=== PATIENT | female | born 1960 ===

== ENCOUNTER 2021-06-26 08:31 | Day surgery (SDC) | payer OTHER ==
[~2021-06-26] VITALS: Ht 162.6 cm; Wt 77.2 kg
[2021-06-26] VITALS (9 sets, daily range): BP systolic 119–158; BP diastolic 62–86
[~2021-06-26 08:31] MED LIST: INSU100I14 SQ; LISI10TA25 PO; METF-397 PO
[2021-06-26] MEDS ORDERED: LACTATED RINGERS 1,000 ML IV ONE (09:04)
--- NOTE | 2021-06-26 09:19 | Progress Note-Pre Operative ---
Pre-Operative Progress Note H&P Reviewed The H&P was reviewed, patient examined and no changes noted. Time Seen by Provider: 09:14 Date H&P Reviewed: Jun 26, 2021 Time H&P Reviewed: 09:14 Pre-Operative Diagnosis: Screening colon DUKE HARVEY DO Jun 26, 2021 09:19
[2021-06-26] MEDS ORDERED: ASPI-1238 PO (09:30)
[2021-06-26] MEDS ORDERED: SITA100T12 PO (09:30)
[2021-06-26] MEDS ORDERED: LACTATED RINGERS 1,000 ML IV SCH (10:15)
[2021-06-26] MEDS ORDERED: PROPOFOL INJECTION 50 ML IV ONE (10:59)
--- NOTE | 2021-06-26 11:35 | Progress Note-Post Operative ---
Post-Operative Progess Note Surgeon (s)/Claims Administrator (s) Surgeon DUKE HARVEY DO Claims Administrator: JASPREET EllisII Pre-Operative Diagnosis Screening colon Post-Operative Diagnosis Polyps Diverticula Int Hemorrhoids Procedure & Operative Findings Date of Procedure 06/26/21 Procedure Performed/Findings Colonoscopy with hot bx PROCEDURE NOTE: After informed consent was obtained, the patient was brought to the endoscopy suite, placed in bed in left lateral decubitus position. She was administered IV sedation by the TRAVELING CRANE OPERATOR who then monitored her vitals the entire time, heart rate, blood pressure and pulse ox and the scope was inserted, pushed all the way to about 150 cm and pushed into the cecum, took a picture of appendiceal orifice and then saw a small polyp. Elected to do a hot biopsy to remove this, took it in two bites. Then slowly withdrew the scope insufflating to look circumferentially at the aranda starting in the cecum, up the ascending colon to the hepatic flexure, then down the transverse colon, splenic flexure, into the descending colon. In the descending colon saw another small polyp and did another hot biopsy. Continued down into the sigmoid and then into the rectal vault and retroflexed the scope. Took picture of the internal hemorrhoids. The patient tolerated the procedure. She was recovered in endoscopy suite. She will need repeat colonoscopy in 5 years because of the polyps. Anesthesia Type IV sedation by TRAVELING CRANE OPERATOR Estimated Blood Loss Estimated blood loss (mL): scant Specimens/Packing Specimens Removed cecal polyp desc colon polyp DUKE HARVEY DO Jun 26, 2021 11:35
--- NOTE | 2021-06-26 11:36 | Endoscopy Discharge Instruct ---
Endo Procedure/Findings Findings 1.: Polyp 2.: Diverticulosis 3.: Internal Hemorrhoids Discharge Instructions - Activity: You might feel a little sleepy until tomorrow. This is due to the medicine you received to relax you. Until tomorrow, you should: NOT drive a car, operate machinery or power tools. NOT drink any alcoholic beverages. NOT make any important decisions or sign importortant papers. Do not return to work until tomorrow, unless otherwise instructed. Resume previous activities tomorrow. Diet: Start by taking liquids. If you tolerate liquids, advance to solid food. 1.: Colonscopy in 5 years Notify Physician - If you experience excessive bleeding, unusual abdominal pain, fever, or chest pain, contact your doctor immediately. DUKE HARVEY DO Jun 26, 2021 11:36
--- NOTE | 2021-06-26 11:58 | Anesthesia-General Post-Op ---
MAC Patient Condition Mental Status/LOC: Same as Preop Cardiovascular: Satisfactory Nausea/Vomiting: Absent Respiratory: Satisfactory Pain: Controlled Complications: Absent Post Op Complications Complications None Follow Up Care/Instructions Patient Instructions None needed. Anesthesiology Discharge Order Discharge Order Patient is doing well, no complaints, stable vital signs, no apparent adverse anesthesia problems. No complications reported per nursing. JAYDON STAHL CRNA Jun 26, 2021 11:57
== END 2021-06-26 12:45 | disposition home or self-care (01) ==
LOC: ENDO 08:31
PROVIDERS: ATTEND Surgery
DX: Z12.11 Encounter for screening for malignant neoplasm of colon (principal); D12.0 Benign neoplasm of cecum; K63.5 Polyp of colon; K57.30 Diverticulosis of large intestine without perforation or abscess without bleeding; K64.8 Other hemorrhoids; I10 Essential (primary) hypertension; E78.5 Hyperlipidemia, unspecified; E11.9 Type 2 diabetes mellitus without complications; Z79.4 Long term (current) use of insulin; Z79.899 Other long term (current) drug therapy
CPT/HCPCS: 82947; 88305